=== PATIENT | female | born 1950 | race Caucasian/White ===

== ENCOUNTER 2017-06-25 09:15 | Observation (INO) | payer OTHER ==
[2017-10-15] MEDS ORDERED: ROPIVACAINE 0.2% 80 MG, EPINEPHrine 0.2 MG, KETOROLAC TROMETHAMINE 30 MG in SYRINGE 0 ML IU ONE (06:00)
[2017-10-15] MEDS ORDERED: BUPI/epINEPH/KETOROLAC IU ONE (06:00)
[2017-10-15] MEDS ORDERED: TRANEXAMIC ACID 3,000 MG in NS (SYRINGE) 50 ML IRR ONE (06:00)
[2017-10-15] MEDS ORDERED: TRANEXAMIC ACID 3,000 MG/50 ML BAG IRR ONE (06:51)
--- NOTE | 2017-10-15 07:15 | PDHPUP ---
History & Physical Update H&P update statement: This history and physical update is based on an assessment of the patient which was completed after admission or registration (within 24 hours), but prior to the surgery/procedure. H&P update: H&P reviewed & patient examined, no change in patient's condition since H&P completed
[2017-10-15] MEDS ORDERED: DEXAMETHASONE 4 MG/ML VIAL IVP ONE (07:38)
[2017-10-15] MEDS ORDERED: ceFAZolin 2 GM/SWFI 2 GM/20 ML SYR IVP ONE (07:38)
[2017-10-15] MEDS ORDERED: ACETAMINOPHEN 325 MG TAB PO ONE (07:38)
[2017-10-15] MEDS ORDERED: FAMOTIDINE 20 MG TAB PO ONE (07:38)
[2017-10-15] MEDS ORDERED: LR 1,000 ML IV ONE (07:39)
[2017-10-15] MEDS ORDERED: LIDOCAINE 1% 2 ML INJ ID PRN (07:39)
[2017-10-15] MEDS ORDERED: VANCOMYCIN 1 GM VIAL ONE (08:03)
[2017-10-15] MEDS ORDERED: MIDAZOLAM 2 MG/2 ML VIAL IVP ONE (08:37)
[2017-10-15] MEDS ORDERED: ALBUTEROL 3 ML DEYVIAL IH PRN (08:38)
[2017-10-15] MEDS ORDERED: DEXAMETHASONE 4 MG/ML VIAL IVP PRN (08:38)
[2017-10-15] MEDS ORDERED: fentaNYL 100 MCG/2 ML INJ IVP PRN (08:38)
[2017-10-15] MEDS ORDERED: ONDANSETRON 4 MG/2 ML VIAL IVP PRN ×2 (08:38→10:45)
[2017-10-15] MEDS ORDERED: NALOXONE HCL 0.4 MG/ML INJ IVP PRN (08:38)
[2017-10-15] MEDS ORDERED: NS 500 ML IV PRN (08:38)
[2017-10-15] MEDS ORDERED: epHEDrine SULFATE 10 MG/ML SYR IVP PRN (08:38)
[2017-10-15] MEDS ORDERED: LR 500 ML IV PRN (08:38)
--- NOTE | 2017-10-15 08:38 | PDANEPAE ---
ANE History of Present Illness here for R TKA ANE Past Medical History - Cardiovascular History Hx Hypertension: No Hx Arrhythmias: No Hx Chest Pain: No Hx Coronary Artery / Peripheral Vascular Disease: No Hx CHF / Valvular Disease: No Hx Palpitations: No - Pulmonary History Hx COPD: No Hx Asthma/Reactive Airway Disease: No Hx Recent Upper Respiratory Infection: No Hx Oxygen in Use at Home: No Hx Sleep Apnea: No Sleep Apnea Screening Result - Last Documented: Negative - Neurologic History Hx Cerebrovascular Accident: No Hx Seizures: No Hx Dementia: No - Endocrine History Hx Diabetes: No Endocrine History Comment: pre- diabetic - Renal History Hx Renal Disorders: No - Liver History Hx Hepatic Disorders: No - Neurological & Psychiatric Hx Hx Neurological and Psychiatric Disorders: Yes Neurological / Psychiatric History Comment: anxiety - Cancer History Hx Cancer: No - Congenital Disorder History Hx Congenital Disorders: No - GI History Hx Gastrointestinal Disorders: Yes Gastrointestinal History Comment: hx of ulcers as a child. "sensitive stomach" . reflux - Other Health History Other Health History: wears glasses - Chronic Pain History Chronic Pain: Yes (right knee pain) - Surgical History Prior Surgeries: appy as child. tonsillectomy as child ANE Review of Systems Review of systems is: negative Review of Systems: - Exercise capacity Exercise capacity: >=4 METS METS (RN): 4 METS ANE Patient History - Allergies Allergies/Adverse Reactions: unknown tranquilizer Allergy (Uncoded 06/10/17 14:17) caused lock jaw and oral swelling in her 20's - Home Medications Home medications: home medication list seen and reviewed Home Medications: Ezetimibe [Zetia 10 MG (*)] 10 mg PO HS 05/28/17 [Last Taken 10/14/17 20:30] Lansoprazole [Prevacid] 15 mg PO HS 05/28/17 [Last Taken 10/15/17 05:30] Melatonin [Melatonin 3 MG (*)] 3 mg PO HS 05/28/17 [Last Taken 10/08/17] Simvastatin [Zocor] 20 mg PO HS 05/28/17 [Last Taken 10/14/17 20:30] metFORMIN HCL [Glucophage 500 mg (*)] 500 mg PO HS 05/28/17 [Last Taken 10/13/17 ] Acetaminophen [Tylenol 325mg (*)] 325 mg PO Q4HRS PRN 10/02/17 [Last Taken 10/14 14:00] Aspirin [Aspirin 325 mg (*)] 325 mg PO HS 10/02/17 [Last Taken 10/01/17] - NPO status NPO Status: no food or drink >8 hours NPO Since - Liquids (Date): 10/14/17 NPO Since - Liquids (Time): 20:30 NPO Since - Solids (Date): 10/14/17 NPO Since - Solids (Time): 19:30 - Smoking Hx Smoking Status: Former smoker - Family Anes Hx Family Hx Anesthesia Complications: none ANE Labs/Vital Signs - Vital Signs Vital Signs: reviewed preoperatively; see RN documention for details Blood Pressure: 148/99 Heart Rate: 87 Respiratory Rate: 14 O2 Sat (%): 94 Height: 165.1 cm Weight: 86.183 kg ANE Physical Exam - Airway Neck exam: FROM Mallampati Score: Class 2 Mouth exam: normal dental/mouth exam - Pulmonary Pulmonary: no respiratory distress - Cardiovascular Cardiovascular: regular rate and rhythym - ASA Status ASA Status: II ANE Anesthesia Plan Anesthesia Plan: spinal
[2017-10-15] MEDS ORDERED: fentaNYL 100 MCG/2 ML INJ ONE (08:53)
[2017-10-15] MEDS ORDERED: PROPOFOL/EMULSION 500 MG/50 ML BOTTLE IV ONE (08:59)
[2017-10-15] MEDS ORDERED: PROPOFOL 200 MG/20 ML VIAL ONE ×2 (10:11→10:38)
[2017-10-15] MEDS ORDERED: PROMETHAZINE HCL 25 MG/ML INJ IVP PRN (10:45)
[2017-10-15] MEDS ORDERED: BISACODYL 10 MG SUPP PR PRN (10:45)
[2017-10-15] MEDS ORDERED: CYCLOBENZAPRINE 10 MG TAB PO PRN (10:45)
[2017-10-15] MEDS ORDERED: diphenhydrAMINE 25 MG CAP PO PRN (10:45)
[2017-10-15] MEDS ORDERED: ONDANSETRON DISINTEGRATING 4 MG TAB PO PRN (10:45)
[2017-10-15] MEDS ORDERED: TEMAZEPAM 15 MG CAP PO PRN (10:45)
[2017-10-15] MEDS ORDERED: PROMETHAZINE HCL 25 MG SUPPR PR PRN (10:45)
[2017-10-15] MEDS ORDERED: DIPHENOXYLATE/ATROPINE LOMOTIL 1 TAB PO PRN (10:45)
[2017-10-15] MEDS ORDERED: LACTULOSE 20 GM/30 ML UDCUP PO PRN (10:45)
[2017-10-15] MEDS ORDERED: METOCLOPRAMIDE 10 MG/2 ML VIAL IVP PRN (10:45)
[2017-10-15] MEDS ORDERED: POLYETHYLENE GLYCOL 3350 17 GM PKT PO PRN (10:45)
[2017-10-15] MEDS ORDERED: MAGNESIUM HYDROXIDE 30 ML UDCUP PO PRN (10:45)
--- NOTE | 2017-10-15 10:45 | POSTOPPROG ---
Post Op Note Date of Operation: 10/15/17 Surgeon: Mehrdad Jimenez Cradle Placer: antonio jimenez Anesthesiologist: dr. meeks Anesthesia: Spinal, Other (Specify) (adductor canal block) Pre-op Diagnosis: right knee OA Post-op Diagnosis: same Indication: right knee pain Procedure: R TKA Findings: severe knee OA Inf/Abcess present in the surg proc area at time of surgery?: No EBL: 50-100
[2017-10-15] MEDS ORDERED: D50W 25 GM/50 ML SYR IVP PRN (10:47)
[2017-10-15] MEDS ORDERED: LR 1,000 ML IV SCH (11:00)
[2017-10-15] MEDS: INSULIN REGULAR HUMAN 100 UNIT/ML UNIT SC SCH ×3 (12:57→21:34)
[2017-10-15] MEDS: ACETAMINOPHEN 325 MG TAB PO SCH ×3 (12:57→23:36)
[2017-10-15] MEDS ORDERED: ceFAZolin 2 GM/DEXTROSE 100 ML IV SCH (14:00)
[2017-10-15] MEDS: ceFAZolin 2 GM/SWFI 2 GM/20 ML SYR IVP SCH ×2 (15:52→23:37)
[2017-10-15] MEDS: oxyCODONE IR 5 MG TAB PO PRN ×2 (15:55→21:40)
--- NOTE | 2017-10-15 17:17 | POSTANESTH ---
Post Anesthetic Evaluation Cardiovascular Status: Normal, Stable Respiratory Status: Normal, Stable Level of Consciousness/Mental Status: Can Participate in Eval Pain Control: Adequate, Prn Tx Ordered Nausea/Vomiting Control: Adequate, Prn Tx Ordered Complications Possibly Related to Anesthesia: None Noted
[2017-10-15] MEDS ORDERED: PANTOPRAZOLE SODIUM 40 MG TAB PO SCH (21:00)
[2017-10-15] MEDS ORDERED: NON-FORMULARY NEW DRUG (Lansoprazole [Prevacid] 15 MG) PO SCH (21:00)
[2017-10-15] MEDS ORDERED: metFORMIN HCL 500 MG TAB PO SCH (21:00)
[2017-10-15] MEDS ORDERED: EZETIMIBE 10 MG TAB PO SCH (21:00)
[2017-10-15] MEDS ORDERED: ATORVASTATIN CALCIUM 10 MG TAB PO SCH (21:00)
[2017-10-15] MEDS ORDERED: NON-FORMULARY NEW DRUG (Simvastatin [Zocor] 20 MG) PO SCH (21:00)
[2017-10-15] MEDS: ASPIRIN 81 MG CHEWABLE TAB PO SCH (21:29)
[2017-10-15] MEDS: SENNOSIDES/DOCUSATE SODIUM TAB PO SCH (21:30)
[2017-10-15] MEDS: FAMOTIDINE 20 MG TAB PO SCH (21:42)
[2017-10-16 03:32] VITALS: RESP 18
[2017-10-16] MEDS: oxyCODONE IR 5 MG TAB PO PRN ×3 (03:34→12:01)
[2017-10-16] MEDS: ACETAMINOPHEN 325 MG TAB PO SCH ×2 (06:15→12:01)
--- NOTE | 2017-10-16 06:26 | GOP ---
[f rep st] OPERATIVE REPORT DATE OF OPERATION: 10/15/2017 SURGEON: Tara Allen MD FACILITIES ASSISTANT: JASE Sanchez. ANESTHESIA: Spinal. PREOPERATIVE DIAGNOSIS: Right knee osteoarthritis. POSTOPERATIVE DIAGNOSIS: Right knee osteoarthritis. PROCEDURE PERFORMED: Right total knee arthroplasty. FINDINGS: ESTIMATED BLOOD LOSS: 30 cc. INDICATIONS: This is a 67-year-old female with severe and progressive pain and deformity of the righ t knee unresponsive to conservative care. Risks and benefits of the surgical intervention were expla ined in detail. DESCRIPTION OF PROCEDURE: The patient was brought to the operative room and placed on the table in t he supine position. Spinal anesthesia was induced without difficulty. A pneumatic tourniquet was ap plied about the right proximal thigh, and the leg was prepped and draped in a sterile fashion. The l eg fontanez was applied. After exsanguination by elevation the tourniquet was inflated to 275 mm of me rcury. Incision was made anterior medial from the tibial tuberosity to a point 2 cm proximal to the superior pole of the patella. Medial parapatellar arthrotomy was carried out from the superior pole of the p atella and posteriorly in line with the fibers of the Type II VMO. The medial collateral ligament wa s elevated and the infrapatellar fat pad was resected. The patella was everted and the articular surface was excised. A 35 mm patellar button was placed. T distal femoral guide hole was drilled and the 6-degree alignment arnav was placed. A 10 mm distal f emoral cut was made without difficulty. Attention was turned to the tibia and a standard 6 mm cut based on the tibial condyle was performed. The tibial articular surface was excised without difficulty. Attention was turned back to the femur and a size 4 Triathlon femoral cutting block was positioned. Anterior, posterior, and chamfer cuts were made, followed by the intercondylar box cut. The knee was extended and the remnants of the medial and lateral meniscus were excised. The posterio r capsule was injected with ropivacaine, epinephrine and Toradol. A size 4 MIS mini-keel tibial tray was positioned. Trial reduction was then carried out. There was excellent range of motion, alignme nt, and stability using the 9 mm polyethylene. All trials were then removed. The joint was thoroughly irrigated and carefully dried. Two packages of cement and 2 grams of vancomycin were mixed in the vacuum mixer and placed on the fixation surface s of all surfaces of the components. The components were implanted and all excess cement was thoroug hly removed. The permanent 9 mm polyethylene X3 was placed without difficulty. The tourniquet was deflated and all bleeders were coagulated. The wound was thoroughly irrigated and closed using interrupted sutures of 2-0 Vicryl for the joint capsule. The subcu was closed with 3-0 Vicryl and the skin with 4-0 Monocryl. Dermabond and Steri-Strips were applied followed by a compre ssive dressing. The patient was then moved from the operating room to the recovery room in good cond ition, having tolerated the procedure well. PATHOLOGY: Severe lateral and patellofemoral osteoarthritis. /[id number]/MODL
[2017-10-16 07:40] VITALS: BP 132/71; PULSE 75; TEMP 97.7; O2SAT 95
[2017-10-16] MEDS: INSULIN REGULAR HUMAN 100 UNIT/ML UNIT SC SCH (07:40)
--- NOTE | 2017-10-16 08:52 | SOAPPROG ---
SOAP Progress Note Assessment/Plan: Assessment: Patient is doing well POD 1 s/p R TKA Pain management: pain is well controlled on oral pain meds. VTE ppx: recommend aspirin 81 mg BID for 4 weeks, cont KIMBERLYN and SCDs Anemia: level is expected initially postop. Asymptomatic. Continue to monitor D/c planning: d/c to home today pending release from PT Plan: 10/16/17 08:51 Subjective: Rosalind is doing well today, denies SOB, chest pain and N/V. Objective: Vital Signs Temp Pulse Resp BP Pulse Ox 36.5 C 75 18 132/71 H 95 10/16/17 07:38 10/16/17 07:38 10/16/17 07:38 10/16/17 07:38 10/16/17 07:38 Laboratory Results 10/16/17 05:35 10/15/17 10/16/17 10/17/17 05:59 05:59 05:59 Intake Total 2420 Output Total 1250 200 Balance 1170 -200 RLE: incision dressing is clean and dry, NVI, +pf/df ICD10 Worksheet Patient Problems: Problems Problem Status Onset Primary localized osteoarthritis of right knee Acute
[2017-10-16] MEDS: ASPIRIN 81 MG CHEWABLE TAB PO SCH (08:59)
[2017-10-16] MEDS: SENNOSIDES/DOCUSATE SODIUM TAB PO SCH (09:00)
[2017-10-16] MEDS: FAMOTIDINE 20 MG TAB PO SCH (09:00)
--- NOTE | 2017-10-16 15:44 | GDS ---
[f rep st] DISCHARGE SUMMARY ADMISSION DIAGNOSIS: Right knee osteoarthritis. DISCHARGE DIAGNOSIS: Right knee osteoarthritis. PROCEDURE: Right total knee arthroplasty. VTE PROPHYLAXIS: Recommend aspirin 81 mg twice daily for 4 weeks. BRIEF DESCRIPTION OF HOSPITAL STAY: Patient was admitted for an elective joint arthroplasty. The pa tient tolerated the procedure well and has passed physical therapy. The patient was given appropriat e antibiotic prophylaxis and venous thromboembolism prophylaxis. The patient's pain was well control led on oral pain medication, patient was holding down food, and had urinated. Decision was made to d ischarge the patient. The patient was given post-operative prescriptions pre-operatively. PLAN: To follow up as scheduled at Dr. Allen's office November 04 at 10:00 a.m. /[id number]/MODL
== END 2017-10-16 12:30 | disposition home or self-care (01) ==
LOC: F3N 10-15 07:11 → INTOOBSV 10-15 07:11 → F3N 10-15 11:53
PROVIDERS: ADMIT Orthopaedic Surgery; ATTEND Orthopaedic Surgery
PROC: 0SRC0J9 Replacement of Right Knee Joint with Synthetic Substitute, Cemented, Open Approach (ICD-10-PCS; principal; 2017-10-15 09:15)
DX: M17.11 Unilateral primary osteoarthritis, right knee (principal); R73.03 Prediabetes
CPT/HCPCS: 27447; 73560; 88311; 97110; 97116; 97161; 97165; C1713; C1776; G8978; G8979; G8980; G8987; G8988; G8989; J0171; J0690; J1100; J1815; J1885; J2250; J2704; J3010; J3370